=== PATIENT | female | born 1945 | race Caucasian/White ===

== ENCOUNTER 2020-10-16 14:01 | Inpatient (IN) | payer OTHER, MEDICARE, BC ==
[~2020-10-16 14:01] MED LIST: Iopamidol-370 76% 500 ML 1 ML ONE
[2020-10-16 14:42] LABS: ALT (SGPT) 37 U/L (8-55); AST (SGOT) 74 U/L (5-34); Albumin 3.9 g/dL (3.4-4.8); Alkaline Phosphatase 93 U/L (40-110); Anion Gap 15 mmol/L (10-20); BUN (Urea Nitrogen) 12 mg/dL (9.8-20.1); Bilirubin, Total 0.5 mg/dL (0.2-1.2); Calc. Creatinine Clearance 0 mL/min (70-130); Calcium 8.3 mg/dL (7.8-10.44); Carbon Dioxide 22 mmol/L (23-31); Chloride 100 mmol/L (98-107); Globulin 2.8 g/dL (2.4-3.5); Glucose 130 mg/dL (83-110); Lipase 168 U/L (8-78); Potassium 3.4 mmol/L (3.5-5.1); Protein, Total 6.7 g/dL (5.8-8.1); Sodium 134 mmol/L (136-145)
[2020-10-16 14:57] LABS: #Basophils 0.1 thou/uL (0.0-0.2); #Eosinphils 0.2 thou/uL (0.0-0.7); #Lymphocytes 1.9 thou/uL (1.20-3.40); #Monocytes 0.9 thou/uL (0.11-0.59); #Neutrophils 12.7 thou/uL (1.40-6.50); %Basophils 0.6 % (0.0-1.0); %Eosinophils 1.3 % (0.0-10.0); %Lymphocytes 12.1 % (21.0-51.0); %Monocytes 5.8 % (0.0-10.0); %Neutrophils 80.1 % (42.0-75.0); Hemoglobin 12.3 g/dL (12.0-16.0); Mean Corpuscular HGB CONC 34.1 g/dL (32.0-36.0); Mean Corpuscular Hemoglobin 31.8 pg (27.0-31.0); Mean Corpuscular Volume 93.3 fL (78.0-98.0); Mean Platelet Volume 7.3 fL (7.4-10.4); Platelet Count 195 thou/uL (130-400); RBC Distribution Width 12.2 % (11.5-14.5); Red Blood Cell (RBC) Count 3.86 mill/uL (4.20-5.40); White Blood Cell (WBC) Count 15.8 thou/uL (4.8-10.8)
[2020-10-16 14:57] LABS: Actual Bicarbonate (HCO3v) 15 mEq/L (22-28); Base Excess -3.4 mEq/L (-2.0 to +3.0); Calcium, Ionized (venous) 0.85 mmol/L (1.16-1.32); Chloride (VBG) 101 mmol/L (98-106); Hemoglobin (Hb) 13.9 g/dL (11.7-16.1); Potassium (VBG) 3.65 mmol/L (3.70-5.30); Sodium 128.9 mmol/L (133-146); pH (venous) 7.59 (7.32-7.43)
[2020-10-16] MEDS ORDERED: Ondansetron PF 4 MG/2 ML Vial ONE ×2 (15:00→15:45)
[2020-10-16] MEDS ORDERED: Neomycin-Polymyxin 1 ML AMP ONE (15:00)
[2020-10-16] MEDS ORDERED: Fentanyl 100 MCG/2 ML VIAL ONE ×4 (15:06→19:17)
[2020-10-16] MEDS ORDERED: Boostrix 0.5 ML (Tdap) VIAL ONE (15:06)
[2020-10-16 15:11] LABS: INR-International Normal Ratio 1.3
[2020-10-16 15:12] LABS: PTT 35.3 sec (22.9-36.1)
[2020-10-16] MEDS ORDERED: Phenylephrine 10 MG/ML VIAL ONE (15:15)
[2020-10-16] MEDS ORDERED: Norepinephrine 4 MG/4 ML VIAL ONE (15:15)
[2020-10-16] MEDS ORDERED: Glycopyrrolate 0.2 MG/ML 5 ML SYRINGE ONE (15:45)
[2020-10-16] MEDS ORDERED: Succinylcholine 200 MG/10 ml SYRINGE FS ONE (15:45)
[2020-10-16] MEDS ORDERED: PROPOFOL 200 MG/20 ML VIAL ONE (15:45)
[2020-10-16] MEDS ORDERED: Rocuronium Bromide 10 MG/ML (10ML VIAL) ONE (15:45)
[2020-10-16] MEDS ORDERED: PHENYLEPHRINE-NS 100 MCG/ML 10 ML SYRINGE ONE ×2 (15:45→16:41)
[2020-10-16 16:21] LABS: SARS-CoV-2 NAA Rapid Test Not Detected (NotDetected)
[2020-10-16] MEDS ORDERED: Sodium Bicarb 50 MEQ/50 ML Abboject 8.4% SYRINGE ONE (17:04)
[2020-10-16] MEDS ORDERED: Sodium Bicarbonate 2.5 MEQ/5 ML VIAL ONE (17:04)
[2020-10-16] MEDS ORDERED: Dextrose 5% in Water 1,000 ML IV PRN (17:08)
[2020-10-16] MEDS ORDERED: hydrALAZINE 20 MG/ML VIAL SLOW IVP PRN (17:08)
[2020-10-16] MEDS ORDERED: Acetaminophen 500 MG TAB PO SCH (17:08)
[2020-10-16] MEDS ORDERED: Dextrose 50% Abboject 50 ML SYRINGE SLOW IVP PRN (17:08)
[2020-10-16] MEDS ORDERED: HumaLOG 300 UNITS/3 ML VIAL SC PRN ×2 (17:08)
[2020-10-16] MEDS ORDERED: Ondansetron ODT 4 MG TAB PO PRN (17:08)
[2020-10-16] MEDS ORDERED: traMADol HCl 50 MG TAB PO PRN (17:08)
[2020-10-16] MEDS ORDERED: Ondansetron PF 4 MG/2 ML Vial IVP PRN (17:08)
[2020-10-16] MEDS ORDERED: Promethazine HCl 25 MG/ML VIAL IVPB PRN (17:59)
[2020-10-16] MEDS ORDERED: Promethazine HCl 25 MG/ML VIAL IM PRN (17:59)
[2020-10-16] MEDS ORDERED: Ondansetron HCl/PF 4 MG/2 ML Vial IVP PRN (17:59)
[2020-10-16 20:03] LABS: Hemoglobin 11.8 g/dL (12.0-16.0)
[2020-10-16 20:18] LABS: Lactic Acid 3.5 mmol/L (0.5-2.2)
[2020-10-16] MEDS: Sodium Chloride 0.9% 1,000 ML IV SCH (20:36)
[2020-10-16] MEDS: Famotidine/PF 20 mg/2ml Vial SLOW IVP SCH (20:45)
[2020-10-16] MEDS: Morphine 2 MG/ML VIAL SLOW IVP PRN (22:00)
[2020-10-16] MEDS: Cyclobenzaprine 10 MG TAB PO PRN (23:15)
[2020-10-16 23:38] LABS: Hemoglobin 11.4 g/dL (12.0-16.0)
[2020-10-17] MEDS: Acetaminophen 500 MG TAB PO SCH ×4 (00:27→11:30)
[2020-10-17] MEDS: HYDROcodone/Acetaminophen 5/325 mg Tablet PO PRN ×2 (00:33→05:59)
[2020-10-17] MEDS: Sodium Chloride 0.9% 1,000 ML IV SCH ×3 (00:37→19:58)
[2020-10-17] MEDS: Morphine 2 MG/ML VIAL SLOW IVP PRN ×4 (02:20→10:43)
[2020-10-17 04:59] LABS: Lactic Acid 3.3 mmol/L (0.5-2.2)
[2020-10-17 05:02] LABS: Anion Gap 10 mmol/L (10-20); BUN (Urea Nitrogen) 20 mg/dL (9.8-20.1); Calc. Creatinine Clearance 57 mL/min (70-130); Calcium 7.2 mg/dL (7.8-10.44); Carbon Dioxide 23 mmol/L (23-31); Chloride 106 mmol/L (98-107); Glucose 160 mg/dL (83-110); Magnesium 1.8 mg/dL (1.6-2.6); Phosphorus 4.8 mg/dL (2.3-4.7); Potassium 3.9 mmol/L (3.5-5.1); Sodium 135 mmol/L (136-145)
[2020-10-17 05:14] LABS: #Monocytes 1.6 thou/uL (0.11-0.59); #Neutrophils 11.9 thou/uL (1.40-6.50); %Basophils 0.1 % (0.0-1.0); %Eosinophils 0.1 % (0.0-10.0); %Lymphocytes 6.7 % (21.0-51.0); %Monocytes 10.8 % (0.0-10.0); %Neutrophils 82.3 % (42.0-75.0); Band 3 % (5-11); Hemoglobin 10.6 g/dL (12.0-16.0); Lymphocytes 5 % (21-51); MDiff Complete? YES; Mean Corpuscular HGB CONC 34.6 g/dL (32.0-36.0); Mean Corpuscular Hemoglobin 32.1 pg (27.0-31.0); Mean Platelet Volume 8.1 fL (7.4-10.4); Monocytes 11 % (0-10); Neutrophil 80 % (42-75); Platelet Count 104 thou/uL (130-400); Platelet Morphology Comment Appears Decreased; RBC Distribution Width 12.6 % (11.5-14.5); RBC Morphology Normal; Reactive Lymphocytes 1 % (0-10); Red Blood Cell (RBC) Count 3.31 mill/uL (4.20-5.40); White Blood Cell (WBC) Count 14.5 thou/uL (4.8-10.8)
[2020-10-17] MEDS: Cyclobenzaprine 10 MG TAB PO PRN (05:59)
[2020-10-17] MEDS ORDERED: Sodium Chloride 0.9% 500 ML IV SCH (07:30)
[2020-10-17] MEDS ORDERED: Hydrocortisone Sod Succ/PF 250 mg/2 ml Vial SLOW IVP SCH (07:30)
[2020-10-17] MEDS ORDERED: Hydrocortisone Sod Succ/PF 100 mg/2 ml Vial IVP SCH ×2 (08:00→14:00)
[2020-10-17] MEDS: Famotidine/PF 20 mg/2ml Vial SLOW IVP SCH ×2 (09:31→20:59)
[2020-10-17] MEDS ORDERED: diphenhydrAMINE 50 MG/ML VIAL IM PRN (10:16)
[2020-10-17] MEDS ORDERED: diphenhydrAMINE 50 MG/ML VIAL IVP PRN (10:16)
[2020-10-17] MEDS ORDERED: Naloxone HCl 0.4 mg/ml Vial IV PRN (10:16)
[2020-10-17] MEDS ORDERED: Zolpidem Tartrate 5 MG TAB PO PRN (10:16)
[2020-10-17] MEDS ORDERED: Promethazine HCl 25 MG/ML VIAL IM PRN (10:16)
[2020-10-17] MEDS ORDERED: diphenhydrAMINE 25 MG CAP PO PRN (10:16)
[2020-10-17] MEDS ORDERED: Communication Order-Pharmacy FS SCH (10:30)
[2020-10-17 10:45] LABS: Bacteria/HPF None Seen HPF (None Seen); Bilirubin Negative (Negative); Blood, Urine 3+ (Negative); Clarity Clear (Clear); Glucose, Urine (Dipstick) Normal (Negative); Ketone, Urine Negative (Negative); Leukocyte Negative Leu/uL (Negative); Nitrite Negative (Negative); Protein, Urine (Dipstick) 30 mg/dL (Neg-Trace); Squamous Epithelial None Seen HPF (0-3); Urobilinogen Normal mg/dL (Less than 2); WBC/HPF None Seen HPF (0-3); pH, Urine 5.5 (5.0-9.0)
[2020-10-17 10:48] LABS: Specific Gravity, Urine 1.025 (1.002-1.036)
[2020-10-17] MEDS ORDERED: Iopamidol-370 76% 500 ML 1 ML ONE (11:02)
[2020-10-17 15:16] LABS: Hemoglobin 8.4 g/dL (12.0-16.0)
[2020-10-17] MEDS ORDERED: Clindamycin/D5W 900 MG in Premix Bag 1 BAG IVPB SCH (16:15)
[2020-10-17 16:49] LABS: Hemoglobin 8.3 g/dL (12.0-16.0)
[2020-10-17] MEDS: HYDROmorphone 10 mg/100 ml CADD IVPB PRN (18:37)
[2020-10-17] MEDS ORDERED: Chloraseptic Spray 180 ml Bottle PO PRN (19:31)
[2020-10-17 23:50] LABS: Hemoglobin 7.7 g/dL (12.0-16.0)
[2020-10-18 05:45] LABS: #Basophils 0.1 thou/uL (0.0-0.2); #Eosinphils 0.1 thou/uL (0.0-0.7); #Lymphocytes 1.2 thou/uL (1.20-3.40); #Monocytes 1.1 thou/uL (0.11-0.59); %Basophils 0.7 % (0.0-1.0); %Eosinophils 0.5 % (0.0-10.0); %Lymphocytes 11.4 % (21.0-51.0); %Monocytes 10.2 % (0.0-10.0); %Neutrophils 77.2 % (42.0-75.0); Hemoglobin 7.9 g/dL (12.0-16.0); Mean Corpuscular HGB CONC 34.5 g/dL (32.0-36.0); Mean Corpuscular Hemoglobin 32.1 pg (27.0-31.0); Mean Corpuscular Volume 93.3 fL (78.0-98.0); Mean Platelet Volume 8.9 fL (7.4-10.4); Platelet Count 60 thou/uL (130-400); RBC Distribution Width 12.5 % (11.5-14.5); Red Blood Cell (RBC) Count 2.45 mill/uL (4.20-5.40); White Blood Cell (WBC) Count 10.4 thou/uL (4.8-10.8)
[2020-10-18 05:59] LABS: Phosphorus 2.5 mg/dL (2.3-4.7)
[2020-10-18 06:03] LABS: ALT (SGPT) 41 U/L (8-55); AST (SGOT) 165 U/L (5-34); Alkaline Phosphatase 56 U/L (40-110); Anion Gap 11 mmol/L (10-20); BUN (Urea Nitrogen) 17 mg/dL (9.8-20.1); Bilirubin, Total 0.9 mg/dL (0.2-1.2); Calc. Creatinine Clearance 91 mL/min (70-130); Calcium 7.4 mg/dL (7.8-10.44); Carbon Dioxide 22 mmol/L (23-31); Chloride 103 mmol/L (98-107); Globulin 2.1 g/dL (2.4-3.5); Glucose 114 mg/dL (83-110); Magnesium 1.7 mg/dL (1.6-2.6); Potassium 3.6 mmol/L (3.5-5.1); Protein, Total 5.1 g/dL (5.8-8.1); Sodium 132 mmol/L (136-145)
[2020-10-18] MEDS ORDERED: Clindamycin/D5W 900 mg/50 ml Premix Bag ONE (08:57)
[2020-10-18] MEDS ORDERED: Fentanyl 100 MCG/2 ML VIAL ONE (09:10)
[2020-10-18] MEDS ORDERED: Midazolam HCl 2 mg/2 ml Vial ONE (09:39)
[2020-10-18] MEDS ORDERED: Ketamine 50 MG/ML (10ML VIAL) ONE (09:43)
[2020-10-18] MEDS ORDERED: HYDROmorphone 2 MG/ML VIAL ONE (09:43)
[2020-10-18] MEDS ORDERED: PROPOFOL 200 MG/20 ML VIAL ONE (09:53)
[2020-10-18] MEDS ORDERED: Calcium Chloride 1 GM/10 ML Abboject SYRINGE ONE (09:53)
[2020-10-18] MEDS ORDERED: Glycopyrrolate 0.2 MG/ML 5 ML SYRINGE ONE (09:53)
[2020-10-18] MEDS ORDERED: Rocuronium Bromide 10 MG/ML (10ML VIAL) ONE (09:53)
[2020-10-18] MEDS ORDERED: Dexamethasone 20 MG/5 ML VIAL ONE (09:53)
[2020-10-18] MEDS ORDERED: Ondansetron PF 4 MG/2 ML Vial ONE (09:53)
[2020-10-18] MEDS: Famotidine/PF 20 mg/2ml Vial SLOW IVP SCH ×2 (09:59→20:55)
[2020-10-18] MEDS: HYDROmorphone 10 mg/100 ml CADD IVPB PRN (16:08)
[2020-10-18 17:32] LABS: Hemoglobin 7.8 g/dL (12.0-16.0)
[2020-10-18] MEDS: Clindamycin/D5W 900 MG in Premix Bag 1 BAG IVPB SCH (17:46)
[2020-10-18] MEDS: Sodium Chloride 0.9% 1,000 ML IV SCH ×2 (17:55→23:48)
[2020-10-18 23:38] LABS: Hemoglobin 7.3 g/dL (12.0-16.0)
[2020-10-19] MEDS: Clindamycin/D5W 900 MG in Premix Bag 1 BAG IVPB SCH (00:58)
[2020-10-19 04:38] LABS: #Lymphocytes 0.8 thou/uL (1.20-3.40); #Monocytes 1.1 thou/uL (0.11-0.59); %Eosinophils 0.1 % (0.0-10.0); %Lymphocytes 8.1 % (21.0-51.0); %Neutrophils 80.7 % (42.0-75.0); Hemoglobin 6.9 g/dL (12.0-16.0); Mean Corpuscular HGB CONC 34.5 g/dL (32.0-36.0); Mean Corpuscular Volume 92.7 fL (78.0-98.0); Mean Platelet Volume 9.3 fL (7.4-10.4); Platelet Count 59 thou/uL (130-400); RBC Distribution Width 12.6 % (11.5-14.5); Red Blood Cell (RBC) Count 2.16 mill/uL (4.20-5.40); White Blood Cell (WBC) Count 9.9 thou/uL (4.8-10.8)
[2020-10-19 04:40] LABS: Anion Gap 9 mmol/L (10-20); BUN (Urea Nitrogen) 14 mg/dL (9.8-20.1); Calc. Creatinine Clearance 108 mL/min (70-130); Calcium 7.4 mg/dL (7.8-10.44); Carbon Dioxide 25 mmol/L (23-31); Chloride 105 mmol/L (98-107); Glucose 123 mg/dL (83-110); Magnesium 1.7 mg/dL (1.6-2.6); Phosphorus 2.3 mg/dL (2.3-4.7); Potassium 3.7 mmol/L (3.5-5.1); Sodium 135 mmol/L (136-145)
[2020-10-19 05:28] LABS: Hemoglobin 6.9 g/dL (12.0-16.0)
[2020-10-19] MEDS ORDERED: Sodium Chloride 0.9% 1,000 ML IV SCH (08:20)
[2020-10-19] MEDS ORDERED: Magnesium Sulfate 3 GM in Sodium Chloride 0.9% 100 ML IV SCH ×2 (08:30→10:15)
[2020-10-19] MEDS ORDERED: Potassium Chloride 10 MEQ in Dextrose 5 % And 0.9 % NaCl 1,000 ML IV SCH (08:30)
[2020-10-19] MEDS: Ferrous Sulfate 325 MG TAB PO SCH ×2 (10:21→18:11)
[2020-10-19] MEDS: Famotidine/PF 20 mg/2ml Vial SLOW IVP SCH ×2 (10:21→21:12)
[2020-10-19] MEDS: Ascorbic Acid 500 mg Chewable Tablet PO SCH ×2 (10:21→21:12)
[2020-10-19] MEDS ORDERED: oxyCODONE/Acetaminophen 5 mg/325 mg Tablet PO SCH (13:00)
[2020-10-19] MEDS: oxyCODONE/Acetaminophen 5 mg/325 mg Tablet PO SCH ×3 (14:40→21:11)
[2020-10-19] MEDS ORDERED: Gabapentin 100 MG CAP PO SCH (15:00)
[2020-10-19] MEDS: Ibuprofen 200 MG TAB PO SCH ×2 (16:07→21:10)
[2020-10-19] MEDS ORDERED: Acetaminophen 325 MG TAB PO SCH (18:00)
[2020-10-19] MEDS: Senokot S 8.6-50 MG TAB PO SCH (21:10)
[2020-10-19] MEDS: Gabapentin 400 MG CAP PO SCH (21:11)
[2020-10-20] MEDS: oxyCODONE/Acetaminophen 5 mg/325 mg Tablet PO SCH ×5 (01:25→20:16)
[2020-10-20] MEDS: Ibuprofen 200 MG TAB PO SCH ×4 (03:16→20:16)
[2020-10-20] MEDS: HYDROmorphone 10 mg/100 ml CADD IVPB PRN (05:21)
[2020-10-20 06:05] LABS: #Basophils 0.1 thou/uL (0.0-0.2); #Eosinphils 0.4 thou/uL (0.0-0.7); #Lymphocytes 1.4 thou/uL (1.20-3.40); #Monocytes 0.9 thou/uL (0.11-0.59); #Neutrophils 6.3 thou/uL (1.40-6.50); %Basophils 0.6 % (0.0-1.0); %Lymphocytes 15.9 % (21.0-51.0); %Monocytes 10.2 % (0.0-10.0); %Neutrophils 69.3 % (42.0-75.0); Hemoglobin 7.3 g/dL (12.0-16.0); Mean Corpuscular HGB CONC 34.5 g/dL (32.0-36.0); Mean Corpuscular Hemoglobin 31.8 pg (27.0-31.0); Mean Corpuscular Volume 92.3 fL (78.0-98.0); Mean Platelet Volume 9.2 fL (7.4-10.4); Platelet Count 85 thou/uL (130-400); RBC Distribution Width 12.7 % (11.5-14.5); Red Blood Cell (RBC) Count 2.28 mill/uL (4.20-5.40)
[2020-10-20 06:24] LABS: Anion Gap 8 mmol/L (10-20); BUN (Urea Nitrogen) 14 mg/dL (9.8-20.1); Calc. Creatinine Clearance 110 mL/min (70-130); Calcium 7.6 mg/dL (7.8-10.44); Carbon Dioxide 27 mmol/L (23-31); Chloride 105 mmol/L (98-107); Glucose 99 mg/dL (83-110); Magnesium 2.2 mg/dL (1.6-2.6); Phosphorus 2.2 mg/dL (2.3-4.7); Potassium 3.7 mmol/L (3.5-5.1); Sodium 136 mmol/L (136-145)
[2020-10-20] MEDS ORDERED: Potassium Phosphate 30 MMOL in Sodium Chloride 0.9% 500 ML IVPB SCH (07:00)
[2020-10-20] MEDS ORDERED: Furosemide 40 MG/4 ML VIAL SLOW IVP SCH (08:45)
[2020-10-20] MEDS ORDERED: Furosemide 20 MG TAB PO SCH (08:45)
[2020-10-20] MEDS: Ferrous Sulfate 325 MG TAB PO SCH ×2 (09:18→17:28)
[2020-10-20] MEDS: Ascorbic Acid 500 mg Chewable Tablet PO SCH ×2 (09:19→20:16)
[2020-10-20] MEDS: Gabapentin 400 MG CAP PO SCH ×3 (09:19→20:16)
[2020-10-20] MEDS: Senokot S 8.6-50 MG TAB PO SCH ×2 (09:19→20:17)
[2020-10-20] MEDS: Polyethylene Glycol 3350 17 GM Packet PO SCH (09:20)
[2020-10-20] MEDS: Famotidine/PF 20 mg/2ml Vial SLOW IVP SCH ×2 (09:20→20:17)
[2020-10-20] MEDS: Lisinopril 10 MG TAB PO SCH (09:20)
[2020-10-20] MEDS: Ondansetron PF 4 MG/2 ML Vial IVP PRN (13:44)
[2020-10-20] MEDS: Bisacodyl 10 MG SUPP PR SCH (17:28)
[2020-10-20] MEDS ORDERED: Magnesium Citrate 300 ML BOT PO SCH (17:45)
[2020-10-20] MEDS ORDERED: Mineral Oil ENEMA PR SCH (20:00)
[2020-10-21] MEDS: oxyCODONE/Acetaminophen 5 mg/325 mg Tablet PO SCH ×4 (01:11→18:28)
[2020-10-21] MEDS: Ondansetron PF 4 MG/2 ML Vial IVP PRN ×2 (03:28→19:30)
[2020-10-21] MEDS: Ibuprofen 200 MG TAB PO SCH ×4 (03:42→20:51)
[2020-10-21 04:41] LABS: #Eosinphils 0.1 thou/uL (0.0-0.7); #Lymphocytes 1.2 thou/uL (1.20-3.40); #Monocytes 1.2 thou/uL (0.11-0.59); #Neutrophils 9.1 thou/uL (1.40-6.50); %Basophils 0.4 % (0.0-1.0); %Eosinophils 0.7 % (0.0-10.0); %Lymphocytes 10.6 % (21.0-51.0); %Monocytes 10.2 % (0.0-10.0); %Neutrophils 78.1 % (42.0-75.0); Hemoglobin 8.8 g/dL (12.0-16.0); Mean Corpuscular HGB CONC 34.7 g/dL (32.0-36.0); Mean Corpuscular Hemoglobin 32.1 pg (27.0-31.0); Mean Corpuscular Volume 92.5 fL (78.0-98.0); Mean Platelet Volume 8.9 fL (7.4-10.4); Platelet Count 150 thou/uL (130-400); RBC Distribution Width 12.9 % (11.5-14.5); Red Blood Cell (RBC) Count 2.73 mill/uL (4.20-5.40); White Blood Cell (WBC) Count 11.6 thou/uL (4.8-10.8)
[2020-10-21 05:16] LABS: Anion Gap 10 mmol/L (10-20); BUN (Urea Nitrogen) 14 mg/dL (9.8-20.1); Calc. Creatinine Clearance 107 mL/min (70-130); Calcium 8.2 mg/dL (7.8-10.44); Carbon Dioxide 28 mmol/L (23-31); Chloride 103 mmol/L (98-107); Glucose 131 mg/dL (83-110); Magnesium 2.2 mg/dL (1.6-2.6); Phosphorus 3.8 mg/dL (2.3-4.7); Potassium 4.3 mmol/L (3.5-5.1); Sodium 137 mmol/L (136-145)
[2020-10-21] MEDS: Lisinopril 10 MG TAB PO SCH (08:37)
[2020-10-21] MEDS: Ferrous Sulfate 325 MG TAB PO SCH ×2 (08:38→18:13)
[2020-10-21] MEDS: Polyethylene Glycol 3350 17 GM Packet PO SCH (08:38)
[2020-10-21] MEDS: Famotidine/PF 20 mg/2ml Vial SLOW IVP SCH (08:38)
[2020-10-21] MEDS: Ascorbic Acid 500 mg Chewable Tablet PO SCH ×2 (08:38→20:51)
[2020-10-21] MEDS: Gabapentin 400 MG CAP PO SCH ×3 (08:38→20:51)
[2020-10-21] MEDS: Senokot S 8.6-50 MG TAB PO SCH ×2 (08:39→20:51)
[2020-10-21] MEDS ORDERED: Famotidine 20 MG TAB PO SCH (09:00)
[2020-10-21] MEDS: Potassium Chloride 10 MEQ in Dextrose 5 % And 0.9 % NaCl 1,000 ML IV SCH ×3 (09:34→22:57)
[2020-10-21] MEDS: Enoxaparin Sodium 40 MG/0.4 ML SYRINGE SC SCH (09:34)
[2020-10-21] MEDS: Bisacodyl 10 MG SUPP PR SCH (18:13)
[2020-10-21] MEDS: Cyclobenzaprine 10 MG TAB PO PRN (18:28)
[2020-10-21] MEDS: Scopolamine 1.5 mg/72 hour Patch TD SCH (20:52)
[2020-10-21] MEDS ORDERED: Lidocaine 2% Jelly 5 ML TUBE TOP SCH (21:00)
[2020-10-21] MEDS ORDERED: Famotidine/PF 20 mg/2ml Vial SLOW IVP SCH (21:00)
[2020-10-21] MEDS: Morphine 2 MG/ML VIAL SLOW IVP PRN (22:06)
[2020-10-21] MEDS ORDERED: Lactated Ringer's 500 ML IV SCH (23:00)
[2020-10-22] MEDS: oxyCODONE/Acetaminophen 5 mg/325 mg Tablet PO SCH ×4 (02:30→18:04)
[2020-10-22] MEDS: Morphine 2 MG/ML VIAL SLOW IVP PRN ×6 (03:24→20:08)
[2020-10-22] MEDS: Ibuprofen 200 MG TAB PO SCH (03:25)
[2020-10-22] MEDS: Cyclobenzaprine 10 MG TAB PO PRN ×2 (03:42→20:08)
[2020-10-22 05:44] LABS: #Eosinphils 0.1 thou/uL (0.0-0.7); #Lymphocytes 1.3 thou/uL (1.20-3.40); #Monocytes 1.4 thou/uL (0.11-0.59); #Neutrophils 7.2 thou/uL (1.40-6.50); %Basophils 0.4 % (0.0-1.0); %Eosinophils 1.4 % (0.0-10.0); %Lymphocytes 12.7 % (21.0-51.0); %Monocytes 14.2 % (0.0-10.0); %Neutrophils 71.4 % (42.0-75.0); Hemoglobin 7.5 g/dL (12.0-16.0); Mean Corpuscular HGB CONC 32.9 g/dL (32.0-36.0); Mean Corpuscular Hemoglobin 31.2 pg (27.0-31.0); Mean Corpuscular Volume 94.8 fL (78.0-98.0); Mean Platelet Volume 8.5 fL (7.4-10.4); Platelet Count 177 thou/uL (130-400); RBC Distribution Width 13.6 % (11.5-14.5); Red Blood Cell (RBC) Count 2.39 mill/uL (4.20-5.40)
[2020-10-22 06:08] LABS: Anion Gap 7 mmol/L (10-20); BUN (Urea Nitrogen) 14 mg/dL (9.8-20.1); Calc. Creatinine Clearance 126 mL/min (70-130); Calcium 7.5 mg/dL (7.8-10.44); Carbon Dioxide 33 mmol/L (23-31); Chloride 103 mmol/L (98-107); Glucose 126 mg/dL (83-110); Sodium 139 mmol/L (136-145)
[2020-10-22] MEDS ORDERED: Lisinopril 10 MG TAB PO SCH (06:39)
[2020-10-22] MEDS: Gabapentin 400 MG CAP PO SCH ×3 (07:59→20:20)
[2020-10-22] MEDS: Polyethylene Glycol 3350 17 GM Packet PO SCH (07:59)
[2020-10-22] MEDS: Senokot S 8.6-50 MG TAB PO SCH ×2 (07:59→20:20)
[2020-10-22] MEDS: Ferrous Sulfate 325 MG TAB PO SCH ×2 (07:59→17:02)
[2020-10-22] MEDS: Ascorbic Acid 500 mg Chewable Tablet PO SCH ×2 (07:59→20:20)
[2020-10-22] MEDS ORDERED: Pantoprazole 40 MG VIAL IVP SCH (09:00)
[2020-10-22] MEDS ORDERED: Amino Acids 4.25 %/Dextrose 5% 2,000 ML IV SCH ×2 (09:30→14:49)
[2020-10-22] MEDS: Potassium Chloride 10 MEQ in Dextrose 5 % And 0.9 % NaCl 1,000 ML IV SCH (09:42)
[2020-10-22] MEDS: Enoxaparin Sodium 40 MG/0.4 ML SYRINGE SC SCH (09:47)
[2020-10-22] MEDS ORDERED: Morphine 2 MG/ML VIAL SLOW IVP SCH (12:30)
[2020-10-22] MEDS: Bisacodyl 10 MG SUPP PR SCH (17:03)
[2020-10-22] MEDS: Ondansetron PF 4 MG/2 ML Vial IVP PRN (20:09)
[2020-10-22] MEDS: Pantoprazole 40 MG VIAL IVP SCH (20:09)
[2020-10-22] MEDS: Metoclopramide HCl 10 MG/2 ML VIAL IVP SCH (20:09)
[2020-10-23] MEDS: oxyCODONE/Acetaminophen 5 mg/325 mg Tablet PO SCH ×4 (00:15→21:06)
[2020-10-23] MEDS: Cyclobenzaprine 10 MG TAB PO PRN ×2 (04:36→12:58)
[2020-10-23] MEDS: Morphine 2 MG/ML VIAL SLOW IVP PRN (04:37)
[2020-10-23 05:31] LABS: Hemoglobin 7.1 g/dL (12.0-16.0); Mean Corpuscular HGB CONC 33.1 g/dL (32.0-36.0); Mean Corpuscular Hemoglobin 31.4 pg (27.0-31.0); Mean Corpuscular Volume 95.1 fL (78.0-98.0); Mean Platelet Volume 8.5 fL (7.4-10.4); Platelet Count 164 thou/uL (130-400); RBC Distribution Width 13.9 % (11.5-14.5); Red Blood Cell (RBC) Count 2.24 mill/uL (4.20-5.40); White Blood Cell (WBC) Count 7.6 thou/uL (4.8-10.8)
[2020-10-23 05:52] LABS: Anion Gap 8 mmol/L (10-20); BUN (Urea Nitrogen) 15 mg/dL (9.8-20.1); Calc. Creatinine Clearance 136 mL/min (70-130); Calcium 7.8 mg/dL (7.8-10.44); Carbon Dioxide 32 mmol/L (23-31); Chloride 99 mmol/L (98-107); Glucose 93 mg/dL (83-110); Magnesium 1.8 mg/dL (1.6-2.6); Phosphorus 3.2 mg/dL (2.3-4.7); Potassium 3.9 mmol/L (3.5-5.1); Sodium 135 mmol/L (136-145)
[2020-10-23 05:55] LABS: Band 1 % (5-11); Eosinophils 6 % (0-10); Lymphocytes 15 % (21-51); MDiff Complete? YES; Monocytes 7 % (0-10); Neutrophil 71 % (42-75)
[2020-10-23] MEDS ORDERED: Magnesium 2 GM/50 ML 2 GM in Premix Bag 1 BAG IVPB SCH (08:30)
[2020-10-23] MEDS: Gabapentin 400 MG CAP PO SCH ×3 (08:59→21:05)
[2020-10-23] MEDS: Ascorbic Acid 500 mg Chewable Tablet PO SCH ×2 (09:01→21:06)
[2020-10-23] MEDS: Enoxaparin Sodium 40 MG/0.4 ML SYRINGE SC SCH (09:02)
[2020-10-23] MEDS: Senokot S 8.6-50 MG TAB PO SCH ×2 (09:02→21:11)
[2020-10-23] MEDS: Ferrous Sulfate 325 MG TAB PO SCH ×2 (09:02→18:13)
[2020-10-23] MEDS: Polyethylene Glycol 3350 17 GM Packet PO SCH (09:03)
[2020-10-23] MEDS: Metoclopramide HCl 10 MG/2 ML VIAL IVP SCH ×2 (09:03→21:11)
[2020-10-23] MEDS: Pantoprazole 40 MG VIAL IVP SCH ×2 (09:04→11:52)
[2020-10-23] MEDS: Ibuprofen 200 MG TAB PO PRN (18:12)
[2020-10-24] MEDS: oxyCODONE/Acetaminophen 5 mg/325 mg Tablet PO SCH ×4 (02:15→20:39)
[2020-10-24 06:22] LABS: #Eosinphils 0.3 thou/uL (0.0-0.7); #Monocytes 0.8 thou/uL (0.11-0.59); #Neutrophils 4.7 thou/uL (1.40-6.50); %Basophils 0.3 % (0.0-1.0); %Eosinophils 3.8 % (0.0-10.0); %Lymphocytes 14.8 % (21.0-51.0); %Monocytes 12.1 % (0.0-10.0); %Neutrophils 69.1 % (42.0-75.0); Hemoglobin 6.9 g/dL (12.0-16.0); Mean Corpuscular HGB CONC 33.6 g/dL (32.0-36.0); Mean Corpuscular Hemoglobin 31.9 pg (27.0-31.0); Mean Platelet Volume 8.2 fL (7.4-10.4); Platelet Count 182 thou/uL (130-400); RBC Distribution Width 13.7 % (11.5-14.5); Red Blood Cell (RBC) Count 2.17 mill/uL (4.20-5.40); White Blood Cell (WBC) Count 6.8 thou/uL (4.8-10.8)
[2020-10-24 06:41] LABS: Anion Gap 8 mmol/L (10-20); BUN (Urea Nitrogen) 14 mg/dL (9.8-20.1); Calc. Creatinine Clearance 138 mL/min (70-130); Calcium 7.6 mg/dL (7.8-10.44); Carbon Dioxide 32 mmol/L (23-31); Chloride 100 mmol/L (98-107); Glucose 85 mg/dL (83-110); Magnesium 2.1 mg/dL (1.6-2.6); Phosphorus 4.4 mg/dL (2.3-4.7); Potassium 3.9 mmol/L (3.5-5.1); Sodium 136 mmol/L (136-145)
[2020-10-24] MEDS ORDERED: Clindamycin/D5W 900 MG in Premix Bag 1 BAG IVPB SCH (08:45)
[2020-10-24] MEDS: Metoclopramide HCl 10 MG/2 ML VIAL IVP SCH ×2 (09:14→21:46)
[2020-10-24] MEDS: Ascorbic Acid 500 mg Chewable Tablet PO SCH ×2 (09:15→20:40)
[2020-10-24] MEDS: Enoxaparin Sodium 40 MG/0.4 ML SYRINGE SC SCH (09:15)
[2020-10-24] MEDS: Gabapentin 400 MG CAP PO SCH ×3 (09:15→20:36)
[2020-10-24] MEDS: Ferrous Sulfate 325 MG TAB PO SCH ×2 (09:15→17:57)
[2020-10-24] MEDS: Polyethylene Glycol 3350 17 GM Packet PO SCH (09:17)
[2020-10-24] MEDS: Pantoprazole 40 MG VIAL IVP SCH (09:48)
[2020-10-24] MEDS: Senokot S 8.6-50 MG TAB PO SCH ×2 (09:48→20:37)
[2020-10-24] MEDS: Ibuprofen 200 MG TAB PO PRN (17:57)
[2020-10-24] MEDS: Scopolamine 1.5 mg/72 hour Patch TD SCH (21:46)
[2020-10-24] MEDS: Cyclobenzaprine 10 MG TAB PO PRN (23:16)
[2020-10-25] MEDS: oxyCODONE/Acetaminophen 5 mg/325 mg Tablet PO SCH ×4 (02:44→21:03)
[2020-10-25 04:09] LABS: #Eosinphils 0.3 thou/uL (0.0-0.7); #Lymphocytes 1.1 thou/uL (1.20-3.40); #Monocytes 0.9 thou/uL (0.11-0.59); #Neutrophils 4.4 thou/uL (1.40-6.50); %Basophils 0.7 % (0.0-1.0); %Eosinophils 4.9 % (0.0-10.0); %Lymphocytes 16.6 % (21.0-51.0); %Monocytes 12.9 % (0.0-10.0); %Neutrophils 64.9 % (42.0-75.0); Mean Corpuscular HGB CONC 33.5 g/dL (32.0-36.0); Mean Corpuscular Volume 95.6 fL (78.0-98.0); Platelet Count 200 thou/uL (130-400); RBC Distribution Width 13.8 % (11.5-14.5); White Blood Cell (WBC) Count 6.8 thou/uL (4.8-10.8)
[2020-10-25 04:42] LABS: Anion Gap 9 mmol/L (10-20); BUN (Urea Nitrogen) 14 mg/dL (9.8-20.1); Calc. Creatinine Clearance 132 mL/min (70-130); Calcium 7.7 mg/dL (7.8-10.44); Carbon Dioxide 31 mmol/L (23-31); Chloride 100 mmol/L (98-107); Glucose 92 mg/dL (83-110); Phosphorus 3.5 mg/dL (2.3-4.7); Sodium 136 mmol/L (136-145)
[2020-10-25] MEDS: Ferrous Sulfate 325 MG TAB PO SCH ×2 (09:46→16:38)
[2020-10-25] MEDS: Gabapentin 400 MG CAP PO SCH ×3 (09:47→21:02)
[2020-10-25] MEDS: Ascorbic Acid 500 mg Chewable Tablet PO SCH ×2 (09:49→21:02)
[2020-10-25] MEDS: Pantoprazole 40 MG VIAL IVP SCH (09:51)
[2020-10-25] MEDS: Senokot S 8.6-50 MG TAB PO SCH ×2 (09:52→21:04)
[2020-10-25] MEDS: Polyethylene Glycol 3350 17 GM Packet PO SCH (09:52)
[2020-10-25] MEDS: Acetaminophen 325 MG TAB PO SCH ×3 (09:55→21:04)
[2020-10-25] MEDS: Enoxaparin Sodium 40 MG/0.4 ML SYRINGE SC SCH (09:56)
[2020-10-25 14:09] LABS: Actual Bicarbonate (HCO3a) 20.5 mEq/L (22-28); Analyzer IN Cardio OR; Base Excess (BEa) -5.3 mEq/L (-2.0 to +3.0); CO2 Tension 41.1 mmHg (35.0-45.0); Calcium, Ionized (arterial) 1.06 mmol/L (1.12-1.30); Carboxyhemoglobin (COHb) 0.3 gm% (0.0-3.0); Hemoglobin (Hb) 10.4 g/dL (12.0-16.0); O2 Tension (PaO2), arterial 120.6 mmHg (> 70.0); Potassium - ABG Lab 2.93 mmol/L (3.70-5.30); pH, Arterial 7.32 (7.35-7.45)
[2020-10-25 14:20] LABS: Puncture Site Arterial Line
[2020-10-25 14:36] VITALS: BMI 35.5
[2020-10-25] MEDS: Cyclobenzaprine 10 MG TAB PO PRN (16:45)
[2020-10-26] MEDS: Acetaminophen 325 MG TAB PO SCH ×4 (03:21→21:03)
[2020-10-26] MEDS: oxyCODONE/Acetaminophen 5 mg/325 mg Tablet PO SCH ×4 (03:21→21:02)
[2020-10-26] MEDS: Pantoprazole 40 MG VIAL IVP SCH (09:20)
[2020-10-26] MEDS: Enoxaparin Sodium 40 MG/0.4 ML SYRINGE SC SCH (09:20)
[2020-10-26] MEDS: Gabapentin 400 MG CAP PO SCH ×3 (09:21→21:02)
[2020-10-26] MEDS: Ascorbic Acid 500 mg Chewable Tablet PO SCH ×2 (09:22→21:02)
[2020-10-26] MEDS: Ferrous Sulfate 325 MG TAB PO SCH ×2 (09:22→17:45)
[2020-10-26] MEDS: Senokot S 8.6-50 MG TAB PO SCH ×2 (09:24→21:03)
[2020-10-26] MEDS: Polyethylene Glycol 3350 17 GM Packet PO SCH (09:24)
[2020-10-26] MEDS: Ibuprofen 200 MG TAB PO PRN (13:38)
[2020-10-26] MEDS: Ondansetron PF 4 MG/2 ML Vial IVP PRN (14:35)
[2020-10-26] MEDS: Cyclobenzaprine 10 MG TAB PO PRN (21:58)
[2020-10-27] MEDS: Acetaminophen 325 MG TAB PO SCH ×2 (02:50→10:21)
[2020-10-27] MEDS: oxyCODONE/Acetaminophen 5 mg/325 mg Tablet PO SCH ×4 (02:51→20:40)
[2020-10-27 05:26] LABS: #Eosinphils 0.3 thou/uL (0.0-0.7); #Lymphocytes 1.2 thou/uL (1.20-3.40); #Monocytes 0.9 thou/uL (0.11-0.59); #Neutrophils 8.4 thou/uL (1.40-6.50); %Basophils 0.3 % (0.0-1.0); %Eosinophils 2.9 % (0.0-10.0); %Lymphocytes 11.3 % (21.0-51.0); %Monocytes 8.6 % (0.0-10.0); %Neutrophils 76.9 % (42.0-75.0); Mean Corpuscular HGB CONC 33.9 g/dL (32.0-36.0); Mean Corpuscular Hemoglobin 32.5 pg (27.0-31.0); Mean Corpuscular Volume 95.9 fL (78.0-98.0); Platelet Count 281 thou/uL (130-400); RBC Distribution Width 13.9 % (11.5-14.5); Red Blood Cell (RBC) Count 2.77 mill/uL (4.20-5.40); White Blood Cell (WBC) Count 10.9 thou/uL (4.8-10.8)
[2020-10-27] MEDS: Gabapentin 400 MG CAP PO SCH ×2 (08:39→20:40)
[2020-10-27] MEDS: Ascorbic Acid 500 mg Chewable Tablet PO SCH ×2 (08:41→20:41)
[2020-10-27] MEDS: Enoxaparin Sodium 40 MG/0.4 ML SYRINGE SC SCH (08:41)
[2020-10-27] MEDS: Pantoprazole 40 MG VIAL IVP SCH (08:41)
[2020-10-27] MEDS: Ferrous Sulfate 325 MG TAB PO SCH ×2 (08:41→17:53)
[2020-10-27] MEDS: Senokot S 8.6-50 MG TAB PO SCH ×2 (08:42→20:41)
[2020-10-27] MEDS: Polyethylene Glycol 3350 17 GM Packet PO SCH (08:42)
[2020-10-27] MEDS: Ibuprofen 200 MG TAB PO PRN (10:25)
[2020-10-27] MEDS: Cyclobenzaprine 10 MG TAB PO PRN (11:56)
[2020-10-27] MEDS ORDERED: Acetaminophen 325 MG TAB PO SCH (12:00)
[2020-10-27] MEDS ORDERED: Gabapentin 400 MG CAP PO SCH (18:00)
[2020-10-27] MEDS ORDERED: Acetaminophen 500 MG TAB PO SCH (18:00)
[2020-10-27] MEDS: Scopolamine 1.5 mg/72 hour Patch TD SCH (20:41)
[2020-10-27] MEDS ORDERED: Pregabalin 75 MG CAP PO SCH (21:00)
[2020-10-28] MEDS: oxyCODONE/Acetaminophen 5 mg/325 mg Tablet PO PRN ×4 (01:13→23:01)
[2020-10-28] MEDS: oxyCODONE/Acetaminophen 5 mg/325 mg Tablet PO SCH ×4 (03:59→22:11)
[2020-10-28] MEDS: Ferrous Sulfate 325 MG TAB PO SCH ×3 (08:19→20:33)
[2020-10-28] MEDS: Ascorbic Acid 500 mg Chewable Tablet PO SCH ×2 (08:20→20:33)
[2020-10-28] MEDS: Gabapentin 400 MG CAP PO SCH ×3 (08:20→18:54)
[2020-10-28] MEDS: Enoxaparin Sodium 40 MG/0.4 ML SYRINGE SC SCH (08:22)
[2020-10-28] MEDS: Pantoprazole 40 MG VIAL IVP SCH (08:23)
[2020-10-28] MEDS: Senokot S 8.6-50 MG TAB PO SCH ×2 (08:24→22:04)
[2020-10-28] MEDS: Polyethylene Glycol 3350 17 GM Packet PO SCH (08:24)
[2020-10-28 10:21] LABS: Actual Bicarbonate (HCO3a) 23.1 mEq/L (22-28); Analyzer IN Cardio OR; Base Excess (BEa) -2.3 mEq/L (-2.0 to +3.0); CO2 Tension 42.7 mmHg (35.0-45.0); Carboxyhemoglobin (COHb) 1.5 gm% (0.0-3.0); Hemoglobin (Hb) 7.2 g/dL (12.0-16.0); O2 Tension (PaO2), arterial 176.5 mmHg (> 70.0); pH, Arterial 7.35 (7.35-7.45)
[2020-10-28 10:21] LABS: Actual Bicarbonate (HCO3a) 24.6 mEq/L (22-28); Analyzer IN Cardio OR; Base Excess (BEa) -0.8 mEq/L (-2.0 to +3.0); CO2 Tension 44.3 mmHg (35.0-45.0); Calcium, Ionized (arterial) 1.08 mmol/L (1.12-1.30); Carboxyhemoglobin (COHb) 1.5 gm% (0.0-3.0); Hemoglobin (Hb) 7.8 g/dL (12.0-16.0); O2 Tension (PaO2), arterial 204.6 mmHg (> 70.0); Potassium - ABG Lab 3.49 mmol/L (3.70-5.30); pH, Arterial 7.36 (7.35-7.45)
[2020-10-28 10:22] LABS: Puncture Site Arterial Line
[2020-10-28 10:22] LABS: Puncture Site Arterial Line
[2020-10-28] MEDS: Cyclobenzaprine 10 MG TAB PO PRN (19:01)
[2020-10-28 19:28] VITALS: BP 111/73; TEMP 98.6
== END 2020-10-28 23:20 | DRG 958 ==
LOC: ERS 14:01 → SDC 15:52 → SURG A 15:54 → CCU 19:38 → SURG A 10-17 19:30
PROVIDERS: ADMIT Emergency Medicine; ATTEND Family Medicine
PROC: 0DB80ZZ Excision of Small Intestine, Open Approach (ICD-10-PCS; principal; 2020-10-16)
PROC: 05H533Z Insertion of Infusion Device into Right Subclavian Vein, Percutaneous Approach (ICD-10-PCS; 2020-10-16)
PROC: 30233N1 Transfusion of Nonautologous Red Blood Cells into Peripheral Vein, Percutaneous Approach (ICD-10-PCS; 2020-10-19)
DX: S36.409A Unspecified injury of unspecified part of small intestine, initial encounter (principal); S32.592A Other specified fracture of left pubis, initial encounter for closed fracture; S22.21XA Fracture of manubrium, initial encounter for closed fracture; S35.00XA Unspecified injury of abdominal aorta, initial encounter; S36.899A Unspecified injury of other intra-abdominal organs, initial encounter; S22.41XA Multiple fractures of ribs, right side, initial encounter for closed fracture; S42.411A Displaced simple supracondylar fracture without intercondylar fracture of right humerus, initial encounter for closed fracture; S32.119A Unspecified Zone I fracture of sacrum, initial encounter for closed fracture; S02.85XA Fracture of orbit, unspecified, initial encounter for closed fracture; S22.018A Other fracture of first thoracic vertebra, initial encounter for closed fracture; S32.041A Stable burst fracture of fourth lumbar vertebra, initial encounter for closed fracture; S32.051A Stable burst fracture of fifth lumbar vertebra, initial encounter for closed fracture; E87.1 Hypo-osmolality and hyponatremia; K56.7 Ileus, unspecified; D62 Acute posthemorrhagic anemia; S32.591A Other specified fracture of right pubis, initial encounter for closed fracture; I95.9 Hypotension, unspecified; S92.812A Other fracture of left foot, initial encounter for closed fracture; S52.021A Displaced fracture of olecranon process without intraarticular extension of right ulna, initial encounter for closed fracture; S82.402A Unspecified fracture of shaft of left fibula, initial encounter for closed fracture; S82.832A Other fracture of upper and lower end of left fibula, initial encounter for closed fracture; E66.9 Obesity, unspecified; S91.312A Laceration without foreign body, left foot, initial encounter; S93.325A Dislocation of tarsometatarsal joint of left foot, initial encounter; T07.XXXA Unspecified multiple injuries, initial encounter; E83.42 Hypomagnesemia; G89.29 Other chronic pain; I10 Essential (primary) hypertension; V89.2XXA Person injured in unspecified motor-vehicle accident, traffic, initial encounter; Y92.89 Other specified places as the place of occurrence of the external cause; Z68.36 Body mass index [BMI] 36.0-36.9, adult
CPT/HCPCS: 0240U; 36415; 36416; 36430; 51702; 70450; 70486; 71045; 71260; 72125; 72170; 72190; 74018; 74022; 74174; 74177; 76000; 80048; 80053; 81003; 81015; 82533; 82805; 83605; 83690; 83735; 83880; 84100; 85014; 85018; 85025; 85610; 85730; 86850; 86900; 86901; 88307; 90471; 90715; 93005; 94640; 96374; 96375; C1713; C1751; C1769; C9113; G0390; J1100; J1170; J1650; J1815; J2250; J2270; J2370; J2405; J2704; J2765; J3010; J3475; J3480; J3490; J7030; J7042; J7620; P9016; P9045; Q9967; S0028